=== PATIENT | female | born 1985 | race Caucasian/White ===

== ENCOUNTER 2025-01-06 02:46 | Emergency (ER) | payer OTHER ==
[~2025-01-06] VITALS: Ht 170.2 cm; Wt 106.0 kg
[2025-01-06] MEDS ORDERED: SODIUM CHLORIDE 0.9% 1,000 ML IV ONE (03:00)
[2025-01-06] MEDS ORDERED: MORPHINE SULFATE 4 MG/ML VIAL IV ONE (03:00)
[2025-01-06 03:05] LABS: BASOPHILS 0.5 % (0.1-1.2); EOSINOPHILS 1.1 % (0.7-5.8); LYMPHOCYTES 39.3 % (19.3-51.7); MCH 29.1 PG (25.6-32.2); MCHC 32.9 g/dL (32.2-35.5); MCV 88.5 fL (79.4-94.8); MONOCYTES 6.6 % (4.7-12.5); NEUTROPHILS 52.3 % (34.0-71.1); RBC 5.15 M/uL (3.93-5.22)
[2025-01-06 03:20] LABS: ALT (SGPT) 27.0 U/L (14-59); AST (SGOT) 13.0 U/L (15-37); GLOMERULAR FILTRATION RATE,EST 95.0 mL/min (>60); PROTEIN, TOTAL 7.9 g/dL (6.4-8.2); UREA NITROGEN 17.0 mg/dL (7-18)
[2025-01-06 04:16] LABS: BLOOD/HGB, URINE NEGATIVE (Negative); KETONE, URINE NEGATIVE (Negative); LEUK ESTERASE, URINE NEGATIVE (negative); NITRITE, URINE NEGATIVE (negative)
[2025-01-06] MEDS ORDERED: ONDANSETRON ODT8 MG PO (04:25)
[2025-01-06] MEDS ORDERED: HYDROCODON-ACE1 EA10 PO (04:25)
[2025-01-06] MEDS ORDERED: HYDROCODONE BIT/ACETAMINOPHEN 5/325 MG 1 TAB HOME.PACK PO ONE (04:30)
[2025-01-06] MEDS ORDERED: ONDANSETRON 4 MG HOME.PACK SL ONE (04:30)
[2025-01-06 04:51] VITALS: BP 133/87
== END 2025-01-06 04:54 | disposition home or self-care (01) ==
LOC: ED 02:46
PROVIDERS: Family Medicine
DX: K85.90 Acute pancreatitis without necrosis or infection, unspecified (principal); M54.9 Dorsalgia, unspecified; Z88.1 Allergy status to other antibiotic agents
CPT/HCPCS: 36415; 74177; 80053; 81003; 83690; 83721; 84478; 84703; 85025; 96374; 96375; 99284-25; A9270; J2270; J2405; J7030; Q9967

== ENCOUNTER 2025-01-20 21:24 | Observation (INO) | payer OTHER ==
[~2025-01-20] VITALS: Ht 170.2 cm; Wt 103.8 kg
[~2025-01-20 21:24] MED LIST: HYDROCODON-ACE1 EA10 PO; ONDANSETRON ODT8 MG PO
--- OUTSIDE RECORDS SUMMARY | 2025-01-20 21:30 | XMS ---
PreManage Notification: QUETA PIÑA Security Associate Media Director Events No recent Security Events currently on file CRITERIA MET - [facility] - 2 Visits in 30 Days CARE PROVIDERS There are no care providers on record at this time. Leandro has no Care Guidelines for this patient. Ole VISIT COUNT (12 MO.) [facility] TOTAL 2 NOTE: Visits indicate total known visits. ED/C VISIT TRACKING (12 MO.) 01/20/2025 21:24 [facility] [place] TYPE: Emergency COMPLAINT: - ABDOMINAL PAIN 01/06/2025 02:47 [facility] [place] TYPE: Emergency COMPLAINT: - BACK/ABD PAIN DIAGNOSES: - Acute pancreatitis without necrosis or infection, unspecified - Allergy status to other antibiotic agents - Dorsalgia, unspecified - Epigastric pain INPATIENT VISIT TRACKING (12 MO.) No inpatient visits to display in this time frame [email or web address]
[2025-01-20] MEDS ORDERED: FAMOTIDINE 20 MG/ 2 ML VIAL IV ONE (21:45)
[2025-01-20 21:57] LABS: BASOPHILS 0.4 % (0.1-1.2); EOSINOPHILS 1.1 % (0.7-5.8); LYMPHOCYTES 40.2 % (19.3-51.7); MCH 29.1 PG (25.6-32.2); MCHC 34.0 g/dL (32.2-35.5); MCV 85.7 fL (79.4-94.8); MONOCYTES 6.6 % (4.7-12.5); NEUTROPHILS 51.6 % (34.0-71.1); RBC 4.77 M/uL (3.93-5.22)
[2025-01-20] MEDS ORDERED: HYDROmorphone HCL 1 MG/ML SYR IV PRN (22:15)
[2025-01-20] MEDS ORDERED: LIDOCAINE & ANTACID 35 ML BTL PO ONE (22:15)
[2025-01-20 22:22] LABS: ALT (SGPT) 76.0 U/L (14-59); AST (SGOT) 34.0 U/L (15-37); GLOMERULAR FILTRATION RATE,EST 109.0 mL/min (>60); PROTEIN, TOTAL 6.9 g/dL (6.4-8.2); UREA NITROGEN 9.0 mg/dL (7-18)
[2025-01-20] MEDS ORDERED: KETOROLAC TROMETHAMINE 30 MG/ML VIAL IV ONE (22:45)
[2025-01-20] MEDS ORDERED: LACTATED RINGER'S 1,000 ML IV ONE (23:30)
[2025-01-21] VITALS (13 sets, daily range): BP systolic 123–135; BP diastolic 72–85
[2025-01-21] MEDS ORDERED: CEFAZOLIN SODIUM 2 GM/20 ML SYR IV ONE (00:15)
[2025-01-21] MEDS ORDERED: LACTATED RINGER'S 1,000 ML IV SCH ×2 (00:15→09:30)
[2025-01-21] MEDS ORDERED: KETOROLAC TROMETHAMINE 30 MG/ML VIAL IV PRN ×2 (00:15→09:30)
[2025-01-21] MEDS ORDERED: MORPHINE SULFATE 4 MG/ML VIAL IV PRN (00:15)
[2025-01-21 00:19] LABS: BLOOD/HGB, URINE NEGATIVE (Negative); KETONE, URINE TRACE (Negative); LEUK ESTERASE, URINE NEGATIVE (negative); NITRITE, URINE NEGATIVE (negative)
--- NOTE | 2025-01-21 00:45 | NUR ---
PATIENT BROUGHT TO MS RM 113 VIA WHEELCHAIR FROM ER. REPORT RECEIVED FROM ER NURSE PRAVEENA. PATIENT ORIENTED TO ROOM, ASSESSMENT AND VS COMPLETE. IV FLUSHED WELL AND WITHOUT DIFFICULTY WITH 10ML NS. PATIENT DENIES ANY DISCOMFORT AT THIS TIME, SHE DENIES ANY NEEDS, CALL LIGHT IN REACH.
--- NOTE | 2025-01-21 02:28 | NUR ---
ROUNDED ON PATIENT, PATIENT IS RESTING IN BED, WOKE TO RN ENTERING ROOM. RESPIRATIONS EVEN AND UNLABORED. SHE DENIES ANY PAIN AND DENIES ANY NEEDS, CALL LIGHT IN REACH
--- NOTE | 2025-01-21 04:21 | NUR ---
ROUNDED ON PATIENT, PATIENT RESTING WITH EYES CLOSED, RESPIRATIONS EVEN AND UNLABORED. NO NEEDS IDENTIFIED, IVF CONTINUING TO INFUSE PER ORDER. CALL LIGHT IN REACH
[2025-01-21] MEDS ORDERED: CEFAZOLIN SODIUM 1 GM/10 ML SYR IV SCH (06:00)
--- NOTE | 2025-01-21 06:28 | NUR ---
VS OBTAINED AND RECORDED, INTAKE AND OUTPUT DOCUMENTED. PRE-OP CHECKLIST STARTED. SOME PATIENT CLOTHING PLACED IN BELONGING BAG AND PUT IN CLOSET. PATIENT DENIES ANY PAIN AT THIS TIME, TTP, BOWEL TONES ACTIVE. NO FURTHER NEEDS, CALL LIGHT IN REACH. SCHEDULED MEDICATION ADMINISTERED PER ORDER. IVF CONTINUING TO INFUSE WITHOUT DIFFICULTY.
--- NOTE | 2025-01-21 06:59 | NUR ---
Pt report received from LISA Corbin.
--- NOTE | 2025-01-21 08:30 | NUR ---
In with pt for assessment and med administration per emar. Pt is A&O, sitting up in bed, denies any pain, currently. Questions answered. Pt denies any needs at this time. Call light in reach. Pt's arrived, in room.
[2025-01-21] MEDS ORDERED: FAMOTIDINE 20 MG/ 2 ML VIAL IV SCH ×2 (09:00→09:20)
--- NOTE | 2025-01-21 09:15 | NUR ---
Dr. Roman in with pt at this time. Mily Uriostegui listening in. New bag of fluid started at this time.
[2025-01-21] MEDS ORDERED: MORPHINE SULFATE 10 MG/ML VIAL IV PRN (09:30)
--- NOTE | 2025-01-21 10:10 | HP ---
[facility] [address], [place] [address] Signed ADMISSION DATE: 01/20/2025 REASON FOR ADMISSION: Acute calculous cholecystitis. HISTORY OF PRESENT ILLNESS: This 39-year-old white woman has presented to the emergency room twice, most recently last night, evaluated at approximately [address] Montilla with complaints of upper abdominal pain. She noted the pain approximately 30 minutes prior to her presentation in the emergency room. Her pain included epigastric pain and right subscapular pain. She was seen on January 06 in our ER for the same symptoms and a CT scan showed no evidence of pancreatitis or other problem though her lipase at this time was elevated to 78. Her pain currently is improved, having been admitted to the hospital given IV fluids, bowel rest and antibiotics. A gallbladder ultrasound was performed which confirmed multiple gallstones and some gallbladder wall thickening. There was a normal size common bile duct. Her liver enzymes were essentially normal. PAST MEDICAL HISTORY: Notable for childbirth x1. She has never had operation in the past. Her home medications have included Zofran and residual Carson. She has allergy to azithromycin causing shortness of breath. She does not use alcohol, but does use marijuana. Last menstrual period was December 30, 2024. Her beta HCG is normal and her lipase is normal today at 57. 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 She is . She is accompanied by her . She has one child. FAMILY HISTORY: Notable for multiple family members having undergone cholecystectomy for symptomatic biliary disease. REVIEW OF SYSTEMS: She denies any shortness of breath or chest pain. She has had no dysphagia, dysuria, or hematuria. She had significant epigastric and right subscapular pain, which is essentially resolving now. PHYSICAL EXAMINATION: Electronically Signed By: ROSANNA KAHN MD 01/21/25 1010 PATIENT NAME: QUETA PIÑA HISTORY AND PHYSICAL DATE OF : [birth year] REPORT #: [id number] PHYSICIAN: ROSANNA KAHN MD PCP: NO PRIMARY CARE PHYSICIAN REPORT IS CONFIDENTIAL AND NOT TO BE RELEASED WITHOUT AUTHORIZATION [facility] [address], [place] [address] Signed GENERAL: This is an obese white woman who has a BMI of 35.8. HEENT: Mucous membranes are slightly dry. Trachea is midline. CHEST: Clear. HEART: Regular without murmur. ABDOMEN: Obese, but soft. There is mild tenderness in right subcostal area. EXTREMITIES: Show no clubbing, cyanosis, or edema. LABORATORY STUDIES: Show normal electrolytes. Creatinine is 0.72, glucose 104. Liver enzymes normal. ALT slightly elevated at 76. Troponin less than 4. Lipase 57. Beta HCG negative. Urinalysis was essentially normal. CBC showed a white count of 7.41, hematocrit 40.9, platelets 308,000. Review of her gallbladder ultrasound was undertaken showing gallstones and some mild gallbladder wall thickening. Abdomen CT in December 2024 showed the gallbladder to be relatively unremarkable at that time, though slightly distended. There is no sign of radiopaque gallstones on the CT. ASSESSMENT: The patient has presented once again with rather typical biliary symptoms and previous history of elevated amylase with suggestive of a history of gallstone pancreatitis low-grade. She is now here with acute calculous cholecystitis. She has been n.p.o. and has had fluid resuscitation, IV antibiotics and is offered consideration of cholecystectomy. I explained in detail the pathophysiology of biliary disease with the use of illustrations on the white board and she and her understand the issue at hand. I would recommend cholecystectomy preferred by laparoscopic approach. The risk of bleeding, infection, bile duct injury, need for open procedure, need for common duct exploration either laparoscopic or open were all reviewed in detail. The latter is rather unlikely given her clinical appearance and lab studies, though it is certainly possible. A cholangiogram would be certainly undertaken and if possible. Understanding these factors, she and her do wish for her to proceed with operation. We will plan to do this today. Rosanna Kahn MD /ROSLYNL /[id number] Electronically Signed By: ROSANNA KAHN MD 01/21/25 1010 PATIENT NAME: QUETA PIÑA HISTORY AND PHYSICAL DATE OF : [birth year] REPORT #: [id number] PHYSICIAN: ROSANNA KAHN MD PCP: NO PRIMARY CARE PHYSICIAN REPORT IS CONFIDENTIAL AND NOT TO BE RELEASED WITHOUT AUTHORIZATION [facility] [address], [place] [address] Signed cc: Dr. Montilla Copies: ~ Electronically Signed By: ROSANNA KAHN MD 01/21/25 1010 PATIENT NAME: QUETA PIÑA HISTORY AND PHYSICAL DATE OF : [birth year] REPORT #: [id number] PHYSICIAN: ROSANNA KAHN MD PCP: NO PRIMARY CARE PHYSICIAN REPORT IS CONFIDENTIAL AND NOT TO BE RELEASED WITHOUT AUTHORIZATION
[2025-01-21] MEDS ORDERED: SODIUM CHLORIDE 0.9% 40 ML IV ONE (10:56)
--- NOTE | 2025-01-21 11:04 | NUR ---
Nikolay from Anesthesia in with pt at this time. Wipe down completed, fresh gown donned, linens changed, LR on straight tubing in room, SCD's on, CPOX available.
[2025-01-21] MEDS ORDERED: LIDOCAINE HCL 2% 20 MG/ML VIAL INJ ONE (11:08)
[2025-01-21] MEDS ORDERED: ROCURONIUM BROMIDE 50 MG/5 ML SYR ONE ×2 (11:08→12:34)
[2025-01-21] MEDS ORDERED: KETOROLAC TROMETHAMINE 30 MG/ML VIAL ONE (11:08)
[2025-01-21] MEDS ORDERED: fentaNYL citrate 100 MCG/2 ML VIAL ONE (11:08)
[2025-01-21] MEDS ORDERED: ACETAMINOPHEN 1,000 MG/100 ML VIAL ONE (11:08)
[2025-01-21] MEDS ORDERED: LIDOCAINE HCL 2% 5 ML SDV ONE (11:08)
[2025-01-21] MEDS ORDERED: MIDAZOLAM HCL 2 MG/2 ML VIAL ONE (11:08)
[2025-01-21] MEDS ORDERED: SUCCINYLCHOLINE IN 0.9% NACL 200 MG/10 ML SYRINGE ONE (11:08)
[2025-01-21] MEDS ORDERED: DEXAMETHASONE SOD PHOS 4 MG/ML VIAL ONE (11:08)
[2025-01-21] MEDS ORDERED: SUGAMMADEX SODIUM 200 MG/2 ML ML ONE (11:08)
[2025-01-21] MEDS ORDERED: KETAMINE in NS 50 MG/5 ML SYR ONE (11:08)
[2025-01-21] MEDS ORDERED: HYDROmorphone HCL 1 MG/ML SYR IV PRN (12:15)
[2025-01-21] MEDS ORDERED: PROCHLORPERAZINE EDISYLATE 10 MG/2 ML VIAL IV PRN (12:15)
[2025-01-21] MEDS ORDERED: fentaNYL citrate 50 MCG/ML SDV IV PRN (12:15)
[2025-01-21] MEDS ORDERED: IBLOOD GLUCOSE TEST STRIP 1 EA TEST VI PRN (12:15)
[2025-01-21] MEDS ORDERED: NALOXONE HCL 0.4 MG SYR IV PRN (12:15)
--- NOTE | 2025-01-21 13:46 | NUR ---
01/21/25 1346 Sheets,Madyson 1329 PT ARRIVED TO PACU ON 6L VIA MASK, PT ASLEEP AND NONAROUSABLE TO TACTILE STIMULI, SMALL AMOUNT OF SNORING NOTED. 1338 PT STARTED MOVING HER HEAD AND GRIMACING, PT OPENED HER MOUTH WHEN ASKED AND ORAL AIRWAY REMOVED. PT EYES REMIAN CLOSED AND SHALLOW BREATHING NOTED. DEEP BREATHING ENOURAGED. 1343 O2 MASK REMOVED, PT WOKE AND IS CRYING. PT DENIES PAIN AND NAUSEA. RN ORIENTED PT TO PACU. 1346 PT ASLEEP AND O2 SAT LOW 90S.
[2025-01-21] MEDS ORDERED: CEFAZOLIN SODIUM 2 GM/20 ML SYR IV SCH (14:00)
[2025-01-21] MEDS ORDERED: IBUPROFEN 600 MG TAB PO PRN (14:15)
[2025-01-21] MEDS ORDERED: OXYCODONE/APAP 7.5/325 TAB PO PRN (14:15)
[2025-01-21] MEDS ORDERED: ACETAMINOPHEN 500 MG TAB PO PRN (14:15)
--- NOTE | 2025-01-21 14:21 | NUR ---
Pt arrived to room at 1418 hours, transferred via bed by ANTISQUEAK CHALKER Anna and AMMUNITION OFFICERLISA Aguiar. Pt is A&O, reports pain is 3.5 out of 10 and tolerable. Pt in with pt. VSS. CPOX on.
[2025-01-21] MEDS ORDERED: SEVOFLURANE 250 ML BTL INH ONE (15:31)
--- NOTE | 2025-01-21 16:13 | NUR ---
PC to Dr. Roman to confirm whether or not he wants this pt on telemetry. He stated she does not need to be on Tele and advised I can DC the order. He also clarified she can have a regular diet when tolerated and he will probably DC her in the morning.
--- NOTE | 2025-01-21 16:21 | NUR ---
MED REC COMPLETE
--- NOTE | 2025-01-21 16:50 | NUR ---
In with pt for hourly VS. Mily Uriostegui is currently assisting pt to get up to use the toilet. Pt tolerated movement well after I instructed her on deep breathing and exhaling when she moves. Pt states she had minimal pain with getting out of bed, no dizziness or lightheadedness when getting up, and she was able to ambulate into the bathroom to toilet, unassisted. Mily Uriostegui stayed in the room until the pt finished toileting. VSS.
--- NOTE | 2025-01-21 18:11 | NUR ---
In with pt for IV pump alarm, occlusion pt side. Pt states she feels like she can get up and take a walk now (I had encouraged her to use the call light when she thinks she feels awake enough to ambulate). SBA as pt ambulated the entire med-surg unit with her and the IV pole. Pt tolerated this activity well, denies any increase in her pain, and burped a few times while walking. She states she hasn't passed any flatus yet. She reports her pain is a 3 to 3.5 out of 10. Pt is doing well with deep breathing and exhaling with big movements. Pt back to room and up in chair with BLE elevated. IVF running at ordered rate. Call light in reach. in room.
--- NOTE | 2025-01-21 19:30 | NUR ---
REPORT RECEIVED FROM DAY SHIFT RN. PATIENT RESTING IN BED. DENIES NEEDS AT THIS TIME. CALL LIGHT IN REACH.
--- NOTE | 2025-01-21 19:49 | NUR ---
PATIENT RESTING IN BED. VS AND I&Os OBTAINED AND RECORDED. PATIENT REPORTS 4/10 RUQ PAIN. PRN PAIN MEDICATION ADMINISTERED. SCHEDULED MEDICATION ADMINISTERED. ASSESSMENT COMPLETE. x5 LAP SITES C/D/I WITH MINIMAL DRY DRAINAGE. BOWEL TONES ACTIVE. PATIENT HAS NO FURTHER NEEDS AT THIS TIME. CALL LIGHT IN REACH.
--- NOTE | 2025-01-21 20:51 | NUR ---
CALL LIGHT ANSWERED. PATIENT UP TO BATHROOM USING MINIMAL SBA TO VOID. PATIENT BACK TO BED. PATIENT REPORTING 4.5/10 LOCALIZED RUQ PAIN. PRN PAIN MEDICATION ADMINISTERED PER PATIENT REQUEST. NEW ICE PACK PROVIDED. PATIENT DENIES FURTHER NEEDS AT THIS TIME. CALL LIGHT IN REACH. CPOX IN PLACE. SCDs IN PLACE.
[2025-01-21] MEDS ORDERED: FAMOTIDINE 20 MG TAB PO SCH (21:00)
--- NOTE | 2025-01-21 21:50 | NUR ---
PATIENT RESTING IN BED. SCHEDULED IV ABX ADMINISTERED PER ORDER. PATIENT DENIES FURTHER NEEDS. CALL LIGHT IN REACH.
[2025-01-22 02:14] VITALS: BP 112/68
--- NOTE | 2025-01-22 02:16 | NUR ---
PATIENT RESTING IN BED. AWAKENS EASILY. VS AND I&Os OBTAINED AND RECORDED. PATIENT DENIES NEEDS AT THIS TIME. CALL LIGHT IN REACH.
--- NOTE | 2025-01-22 04:23 | NUR ---
PATIENT RESTING IN BED. RESPIRATIONS EVEN AND UNLABORED. CALL LIGHT IN REACH.
[2025-01-22 05:12] LABS: BASOPHILS 0.4 % (0.1-1.2); EOSINOPHILS 0.2 % (0.7-5.8); LYMPHOCYTES 13.5 % (19.3-51.7); MCH 29.5 PG (25.6-32.2); MCHC 34.2 g/dL (32.2-35.5); MCV 86.3 fL (79.4-94.8); MONOCYTES 6.9 % (4.7-12.5); NEUTROPHILS 78.6 % (34.0-71.1); RBC 4.24 M/uL (3.93-5.22)
--- NOTE | 2025-01-22 05:15 | NUR ---
PATIENT AMBULATED LANDRY INDEPENDENTLY. CONCEPCION WELL.
[2025-01-22 05:31] LABS: ALT (SGPT) 145.0 U/L (14-59); AST (SGOT) 94.0 U/L (15-37); GLOMERULAR FILTRATION RATE,EST 116.0 mL/min (>60); PROTEIN, TOTAL 5.6 g/dL (6.4-8.2); UREA NITROGEN 6.0 mg/dL (7-18)
[2025-01-22 05:53] VITALS: BP 109/70
[2025-01-22 05:56] VITALS: BP 109/70
--- NOTE | 2025-01-22 06:25 | NUR ---
PATIENT RESTING IN BED. REQUESTING PRN PAIN MEDICATION FOR 3/10 ABD PAIN. PRN PAIN MEDICATION ADMINISTERED. NO FURTHER NEEDS. CALL LIGHT IN REACH.
[2025-01-22] MEDS ORDERED: IBUPROFEN600 MG PO (09:47)
[2025-01-22] MEDS ORDERED: ACETAMINOPHEN500 MG PO (09:47)
[2025-01-22 09:53] VITALS: BP 118/82
[2025-01-22 10:18] VITALS: BP 118/82
--- NOTE | 2025-01-23 10:57 | PATH ---
[facility] [address] [place], [place] [address] Signed SPECIMEN(S): A GALLBLADDER WITH GALLSTONES SPECIMEN SOURCE: A. GALLBLADDER WITH GALLSTONES CLINICAL HISTORY: Acute calculus cholecystitis FINAL PATHOLOGIC DIAGNOSIS: Gallbladder, cholecystectomy: - Chronic cholecystitis. - Cholelithiasis. BB:joni MICROSCOPIC EXAMINATION: Histologic sections of all submitted blocks are examined by light microscopy. These findings, together with the gross examination, support the pathologic diagnosis. GROSS DESCRIPTION: The specimen, labeled and designated "Gisell Chaves, gallbladder with gallstones per requisition," is received in formalin and consists of Specimen: Surgically disrupted gallbladder. Dimensions: 9.9 x 4 x 3.4 cm. Serosa: Blue-green and smooth. Cystic Duct: Unobstructed. Calculi: Present�yellow and botryoid. Mucosa: Green and velvety with yellow flecking. Wall thickness: 0.6 cm. Lymph node: No pericystic lymph nodes are grossly identified. Additional: None. Ios Developer sections are submitted in (A1). AA (under the direct supervision of a pathologist) The Gross Description was prepared using a voice recognition system. The report was reviewed for accuracy; however, sound-alike word errors, addition and/or deletions may occur. If there is any question about this report, please contact Client Services. PERFORMING LABORATORY: Technical component was performed by [facility], [address] [place] [id number] (CLIA# [id number]). Professional interpretation was PATIENT NAME: QUETA CHAVES PATHOLOGY DATE OF : [birth year] REPORT #: [id number] PHYSICIAN: [facility] PCP: NO PRIMARY CARE PHYSICIAN REPORT IS CONFIDENTIAL AND NOT TO BE RELEASED WITHOUT AUTHORIZATION [facility] [address] [facility] [place] [place] [address] Signed performed by [facility] [address] [address] (CLIA#: [id number]). Diagnostician: Alex Vargas MD Pathologist Electronically Signed 01/23/2025 Copies: ~ PATIENT NAME: QUETA CHAVES PATHOLOGY DATE OF : [birth year] REPORT #: [id number] PHYSICIAN: [facility] PCP: NO PRIMARY CARE PHYSICIAN REPORT IS CONFIDENTIAL AND NOT TO BE RELEASED WITHOUT AUTHORIZATION
--- NOTE | 2025-01-24 11:57 | OR ---
[facility] [address] [place], [place] [address] Signed DATE OF OPERATION: 01/21/2025 SURGEON: Rosanna Kahn MD PREOPERATIVE DIAGNOSIS: Acute calculous cholecystitis. POSTOPERATIVE DIAGNOSIS: Acute calculous cholecystitis with complete obstruction of the common bile duct due to common duct stone. PROCEDURES: 1. Laparoscopic cholecystectomy with laparoscopic common bile duct exploration (transcystic duct) including ampullary dilation. 2. Laparoscopic clearance of common duct with flexible choledochoscopy. 3. Surgeon-directed fluoroscopy. ANESTHESIA: General endotracheal; Nikolay Yung, MOLD MAKER HELPER, and local 10 mL of 0.25% Marcaine with epinephrine. INDICATION: This 39-year-old white woman presented to the emergency room late last night with recurrent bouts of epigastric, right subcostal, and right subscapular pain. She was found to have findings consistent with acute calculous cholecystitis based on ultrasound. Quite notably, in December, she presented to the emergency room where she was found to have slightly elevated lipase, and a CT scan was noted to be normal. No ultrasound was performed at that time. Her ultrasound shows multiple gallstones at this time, and she has been fluid resuscitated, given intravenous antibiotics and now to undergo cholecystectomy preferred by laparoscopic approach. Quite notably, her liver enzymes are essentially normal. She understands as does her the risk of bleeding, infection, bile duct injury, need for open procedure, need for common duct exploration and other indicated procedures and wishes to proceed. FINDINGS: Indeed the gallbladder was quite inflamed. It was distended and required decompression. The liver and other intraabdominal organs were normal. Initial cholangiogram showed complete obstruction of the distal common bile duct, and with further imaging, a single obstructing stone was noted there. On that basis, a transcystic duct common duct exploration was undertaken, which initially included dilation of the ampulla and cystic Electronically Signed By: ROSANNA KAHN MD 01/24/25 1157 PATIENT NAME: QUETA PIÑA OPERATIVE REPORT DATE OF : [birth year] REPORT #: [id number] PHYSICIAN: ROSANNA KAHN MD PCP: NO PRIMARY CARE PHYSICIAN REPORT IS CONFIDENTIAL AND NOT TO BE RELEASED WITHOUT AUTHORIZATION [facility] [address] [place], [place] [address] Signed duct, flushing of the duct, cholangiogram and ultimately flexible choledochoscopy to completely clear the duct. Completion cholangiogram was essentially normal. A small filling defect noted within the common duct is related to a small blood clot noted at conclusion of the flexible choledochoscopy. She tolerated the procedure well. Indeed, the gallbladder did have multiple 3 to 5 mm gallstones as well. The mucosa was otherwise normal other than acute inflammation. DESCRIPTION OF PROCEDURE: The patient was brought to the operating room, given a general endotracheal anesthetic. Preoperative antibiotic Ancef was given. Sequential compression device stockings were used. The abdomen was prepared with a chlorhexidine solution and draped sterilely. An infraumbilical incision was made using an open Elizabet cannula technique. Pneumoperitoneum was achieved to a level of 14 mmHg of carbon dioxide gas. Intra-abdominal inspection showed no sign of ascites or carcinomatosis. The gallbladder was obscured from view. Three additional trocars were placed in usual configuration in the subxiphoid, right midclavicular, and right anterior axillary line. Gallbladder was then exposed by elevating the liver showing a markedly distended and inflamed and pink-red gallbladder. Significant inflammation was indeed noted. There was a fair amount of edema of the gallbladder as well. Using a laparoscopic needle point trocar device, the gallbladder was decompressed of its bile which was dark. The puncture site was grasped and elevated cephalad exposing the remaining gallbladder quite well. It was quite edematous. The gallbladder was retracted laterally at the infundibulum, and using blunt electrocautery dissection, the triangle of Calot was dissected free. The edema of the gallbladder wall was such that the dissection was relatively straightforward in that regard. Ultimately, the cystic duct was well identified as was the cystic artery, and cystic artery was doubly clipped. A clip was applied across the gallbladder-cystic duct junction, and a transverse choledochotomy was made in the cystic duct. Egress of clear bile was noted. Using the Awan-type cholangiocatheter, an intraoperative cholangiography was undertaken. Free flow of contrast was noted into the biliary tree but absolutely no emptying into the duodenum. A stone was not readily noted at that point, but with various manipulations, one could see a filling defect. On that basis, a transcystic duct common duct exploration was deemed appropriate. A Taut 5 mm trocar was placed in alignment with the cystic duct under direct visualization. The flexible wire was passed down the trocar and insinuated into the cystic duct. Fluoroscopic control assured that the wire had gone down the common duct and into the duodenum. An ERCP balloon catheter was then passed over the wire and aligned over the ampulla itself. Dilation with contrast within the balloon was undertaken, dilated in the Electronically Signed By: ROSANNA KAHN MD 01/24/25 1157 PATIENT NAME: QUETA PIÑA OPERATIVE REPORT DATE OF : [birth year] REPORT #: [id number] PHYSICIAN: ROSANNA KAHN MD PCP: NO PRIMARY CARE PHYSICIAN REPORT IS CONFIDENTIAL AND NOT TO BE RELEASED WITHOUT AUTHORIZATION [facility] [address] [place], [place] [address] Signed ampullary area quite obviously. The catheter was deflated, withdrawn to the cystic duct and dilated there to allow for accommodation of the choledochoscope should the need arise. An attempt to flush the common duct after ampullary dilation was unsuccessful as the wire was withdrawn from the ERCP catheter distorted the lumen and did not allow for adequate flushing. On that basis, the catheter was removed, and an Awan-type cholangiocatheter was once again inserted into the cystic duct, and irrigation was undertaken. There appeared to be flow into the duodenum on cholangiogram following the flushing maneuver but also a filling defect in the midportion of the duct. On that basis, a flexible choledochoscopy with retrieval of the obstructing stone was advisable. A ureteroscope was obtained and attached to a separate camera with a separate pressure bag saline infusion system. Insinuation of the camera into the cystic duct was not forthcoming despite having dilated it previously. The cystic duct was then once again dilated after application of the flexible guidewire. Placement of the ureteroscope over the wire into the cystic duct ultimately did allow port to pass from the cystic duct into the common duct. At first, visualization was rather poor, but ultimately, the scope was passed into the duodenum itself. The duodenal mucosa appeared normal. Scope was withdrawn and continuous irrigation undertaken showing no evidence of the actual offending stone at this point. There was a small blood clot in the midportion of the common bile duct but no active bleeding by any means. The scope was removed, and cholangiogram was once again performed showing free flow of contrast in biliary tree with no evidence of obvious stone. There was a minute filling defect in the midportion of the common bile duct which I attribute to the blood clot seen on choledochoscopy. The camera was removed fully, and the cystic duct was triply clipped and divided. The gallbladder was then dissected free in a retrograde fashion using electrocautery, placed in an Endobag and extracted through the infraumbilical port site. Gallbladder was opened on the back table showing innumerable small stones between 3 and 5 mm. No evidence of malignancy or other problem. Irrigation was undertaken in the subhepatic space. Cautery was used for hemostasis. Jim hemostatic agent was applied as well. Excess irrigation fluid was suctioned free. There was no bile leak or other problem. The trocars were removed under direct visualization showing no sign of bleeding. The infraumbilical fascial incision was reapproximated with interrupted 0-Vicryl suture. 10 mL of 0.25% Marcaine with epinephrine was injected locally. The skin was then closed with interrupted 3-0 Vicryl. Steri-Strips were applied. The patient was ultimately extubated and transferred to the recovery room in good condition having suffered no complication. Sponge, needle, and instrument counts were reported as correct x3. The operation was rather prolonged, complicated, and difficult on the basis of challenging common duct exploration, but it was accomplished safely. Electronically Signed By: ROSANNA KAHN MD 01/24/25 1157 PATIENT NAME: QUETA PIÑA OPERATIVE REPORT DATE OF : [birth year] REPORT #: [id number] PHYSICIAN: ROSANNA KAHN MD PCP: NO PRIMARY CARE PHYSICIAN REPORT IS CONFIDENTIAL AND NOT TO BE RELEASED WITHOUT AUTHORIZATION [address] [address] Signed Rosanna Kahn MD JM/MODL /[id number] cc: Dr. Wiliam Day MD Copies: FLORIAN SANCHEZ MD ~ Electronically Signed By: ROSANNA KAHN MD 01/24/25 1157 PATIENT NAME: WANGQUETA ALEXANDRE OPERATIVE REPORT DATE OF : [birth year] REPORT #: [id number] PHYSICIAN: ROSANNA KAHN MD PCP: NO PRIMARY CARE PHYSICIAN REPORT IS CONFIDENTIAL AND NOT TO BE RELEASED WITHOUT AUTHORIZATION
--- NOTE | 2025-01-24 15:27 | EKG ---
[facility] [address] [facility] [place] [address] Signed Normal sinus rhythm Normal ECG No previous ECGs available Confirmed by Reji Rodriguez MD () on 01/24/2025 3:27:01 PM Electronically Signed By: REJI RODRIGUEZ MD 01/24/25 1527 PATIENT NAME: QUETA PIÑA Electrocardiogram DATE OF : [birth year] PHYSICIAN: REJI RODRIGUEZ MD REPORT #: [id number] REPORT IS CONFIDENTIAL AND NOT TO BE RELEASED WITHOUT AUTHORIZATION
== END 2025-01-22 10:51 | disposition home or self-care (01) ==
LOC: ED 21:24 → MS 21:25
PROVIDERS: Internal Medicine; ADMIT Surgery; ATTEND Surgery
PROC: 0FT44ZZ Resection of Gallbladder, Percutaneous Endoscopic Approach (ICD-10-PCS; principal; 2025-01-21 11:30)
PROC: 0F794ZZ Dilation of Common Bile Duct, Percutaneous Endoscopic Approach (ICD-10-PCS; 2025-01-21 11:30)
DX: K80.12 Calculus of gallbladder with acute and chronic cholecystitis without obstruction (principal); Z88.1 Allergy status to other antibiotic agents
CPT/HCPCS: 00790; 36415; 74300; 76705; 80053; 81003; 83690; 84484; 84703; 85025; 88304; 93005; 93010; 94762; 96374; 96375; 96376; 99285-25; A9270; C1726; C1769; C1894; G0378; J0131; J0330; J0690; J1100; J1171; J1885; J2003; J2250; J2405; J2704; J3010; J3490; J7121; Q9967